=== PATIENT | female | born 1955 | race Caucasian/White ===

== ENCOUNTER 2017-04-05 12:11 | Inpatient (IN) | payer BC ==
[~2017-04-05] VITALS: Ht 157.5 cm; Wt 68.9 kg
[2017-04-05] MEDS ORDERED: ONDANSETRON 4 MG INJ IV STA ×2 (12:16→16:16)
[2017-04-05] MEDS ORDERED: morphine 4 MG/ML VIAL IV STA ×2 (12:16→16:16)
[2017-04-05] MEDS ORDERED: SOD CHLORIDE 0.9% 1,000 ML IV STA ×3 (12:16→16:02)
[2017-04-05] MEDS ORDERED: MECLIZINE 12.5 MG TAB PO ONE (12:30)
[2017-04-05 12:41] LABS: BASOPHILS % 0.3 % (0.0-2.0); EOSINOPHILS # 0.1 10^3/ul (0.0-0.5); EOSINOPHILS % 0.5 % (0.0-7.0); HEMATOCRIT 38.1 % (37.0-47.0); HEMOGLOBIN 13.1 g/dl (12.0-16.0); LYMPHOCYTES # 2.2 10^3/ul (0.8-2.9); LYMPHOCYTES % 13.7 % (15.0-51.0); MEAN CORPUSCULAR HEMOGLOBIN 31.6 pg (29.0-33.0); MEAN CORPUSCULAR HGB CONC 34.4 g/dl (32.0-37.0); MEAN CORPUSCULAR VOLUME 91.8 fl (82.0-101.0); MEAN PLATELET VOLUME 10.3 fl (7.4-10.4); MONOCYTE # 0.6 10^3/ul (0.3-0.9); MONOCYTES % 4.1 % (0.0-11.0); NEUTROPHIL # 12.8 10^3/ul (1.6-7.5); NEUTROPHILS % 80.6 % (39.0-77.0); PLATELET COUNT 292 10^3/UL (140-415); RED BLOOD COUNT 4.15 10^6/ul (4.20-5.40); RED CELL DISTRIBUTION WIDTH 13.2 % (11.5-14.5); WHITE BLOOD COUNT 15.8 10^3/ul (4.8-10.8)
--- NOTE | 2017-04-05 12:47 | RADRPT ---
PROCEDURE: US Abdomen (right upper quadrant). CLINICAL INDICATION: Upper abdominal pain. TECHNIQUE: Multiple real-time longitudinal and transverse images of the right upper quadrant of th e abdomen were acquired utilizing a curved array transducer. Images were reviewed on a high-resoluti on PACS workstation. COMPARISON: None FINDINGS: The liver is normal in size and echotexture without focal mass or intrahepatic biliary dilatation. There is normal hepatopedal flow within the main portal vein. The gallbladder is well displayed wit hout filling defects or wall thickening The common bile duct measures 2.6 mm in maximal dimension. The visualized portions of the pancreas are unremarkable with obscuration of the tail of the pancre as. No free fluid is identified. The right kidney measures 10.5 cm in length. There is normal echogenicity within the right kidney. There is no perinephric fluid collection. No hydronephrosis, mass, or calculus is seen. IMPRESSION: 1. Unremarkable right upper quadrant ultrasound. RPTAT: [facility] Physician Jigar Date Time Electronically viewed and signed by Physician Jigar on 04/05/2017 12:47 CORRINE/
[2017-04-05 12:56] LABS: INR 0.91; PROTIME 12.2 Sec (12.2-14.2)
[2017-04-05 12:57] LABS: PARTIAL THROMBOPLASTIN TIME 30.3 Sec (25.0-35.0)
[2017-04-05 12:58] LABS: ALANINE AMINOTRANSFERASE 51 IU/L (13-69); ALBUMIN 4.5 g/dl (3.3-4.9); ALKALINE PHOSPHATASE 125 IU/L (42-121); ANION GAP 21 (8-16); ASPARTATE AMINO TRANSFERASE 33 IU/L (15-46); BILIRUBIN,INDIRECT 0.2 mg/dl (0-1.1); BILIRUBIN,TOTAL 0.2 mg/dl (0.2-1.3); BLOOD UREA NITROGEN 17 mg/dl (7-20); CALCIUM 9.1 mg/dl (8.4-10.2); CARBON DIOXIDE 23 mmol/L (21-31); CHLORIDE 99 mmol/L (97-110); CREATININE 0.75 mg/dl (0.44-1.00); GLUCOSE 187 mg/dl (70-220); POTASSIUM 3.1 mmol/L (3.5-5.1); SODIUM 140 mmol/L (135-144); TOTAL PROTEIN 7.6 g/dl (6.1-8.1)
--- NOTE | 2017-04-05 12:59 | RADRPT ---
PROCEDURE: XR Chest. CLINICAL INDICATION: chest pain, cva TECHNIQUE: Single frontal view of the chest was obtained COMPARISON: None FINDINGS: The heart and mediastinum are within normal limits. The lungs are clear. There is no pleural effusion or pneumothorax. RPTAT: AA IMPRESSION: No acute disease. .Bart Romero MD, MD Date Time Electronically viewed and signed by .Bart Romero MD, on 04/05/2017 12:59 .S/
[2017-04-05 13:12] LABS: TROPONIN-I < 0.012 ng/ml (0.00-0.12)
--- NOTE | 2017-04-05 13:17 | RADRPT ---
PROCEDURE: CT Brain without. CLINICAL INDICATION: Neurological deficit, possible stroke. TECHNIQUE: A CT of the brain was performed on multidetector high-resolution CT scanner utilizing a xial sections from the skull base through the vertex without contrast. The scan was reviewed in sof t tissue brain and high frequency resolution bone algorithm windows. Images were reviewed on a high -resolution PACS workstation. One or more the following does reduction techniques were utilized: Aut omated exposure control, adjustment of the mA/ or kV according to patient's size, or use of iterativ e reconstruction technique. The exam CTDI = 43.58 mGy and the DLP = 630.2 mGy-cm. COMPARISON: None available. FINDINGS: The ventricles and sulci are mildly prominent indicative of volume loss. There is no intracranial h emorrhage, mass effect or midline shift. No abnormal intra-axial or extra-axial fluid collections a re seen. The ceja/white matter differentiation is preserved. There are mild scattered foci of hypoattenuation in the white matter, which are nonspecific in etiol ogy but likely reflect chronic small vessel ischemic changes. There are mild intracranial vascular calcifications consistent with atherosclerosis. The visualized paranasal sinuses demonstrate mild sc attered mucosal thickening mainly in ethmoid air cells. The mastoid air cells are essentially clear . IMPRESSION: 1. No acute intracranial hemorrhage, transcortical infarction or mass effect. Please note MRI is mo re sensitive for detection of acute ischemia and can be obtained as clinically warranted. 2. Mild intracranial atherosclerosis and chronic small vessel ischemic changes. 3. Mild generalized cerebral volume loss. RPTAT: HH .Alberta Patricia MD, MD Date Time Electronically viewed and signed by .Alberta Patricia MD, MD on 04/05/2017 13:16 .N/
[2017-04-05] MEDS ORDERED: POTASSIUM CHLORIDE (SR) 20 MEQ TAB PO STA (13:24)
[2017-04-05] MEDS ORDERED: NITROGLYCERIN 2% 1 GM OINT PKT TD STA (13:29)
[2017-04-05] MEDS ORDERED: ASPIRIN 81 MG TAB PO STA (13:29)
[2017-04-05] MEDS ORDERED: LIDOCAINE/MYLANTA 40 ML BTL PO ONE (13:30)
[2017-04-05] MEDS ORDERED: METF500T4 PO (13:30)
[2017-04-05] MEDS ORDERED: NITROGLYCERIN (SL) 0.4 MG TAB SL PRN (13:30)
[2017-04-05] MEDS ORDERED: METF500T3 PO (13:44)
[2017-04-05] MEDS ORDERED: CARB200T43 PO (13:49)
--- NOTE | 2017-04-05 14:11 | ERA ---
ER Documentation Chief Complaint Date/Time DATE: 04/05/17 TIME: 14:08 Chief Complaint BIB RA FOR EVAL OF N/V HPI Patient is a 61-year-old female with diabetes and vertigo who presents with epigastric pain as well as vomiting and dizziness. The symptoms started a few days ago. She came from work. She has midepigastric pain which comes and goes. She has had no treatment as of yet. She has never had a stress test or cardiac cath done. Upon review of old medical records this is the patient's first visit to the emergency department. ROS All systems reviewed and are negative except as per history of present illness. Medications Home Meds Reported Medications Carbamazepine* (Carbamazepine* XR) 200 Mg Tab.er.12h, 200 MG PO Q12, #60 TAB.SA 04/05/17 Metformin Hcl* (Metformin Hcl* ER) 500 Mg Tab.sr.24h, 500 MG PO DAILY, #30 TAB 04/05/17 Discontinued Reported Medications Metformin Hcl* (Metformin Hcl*) 500 Mg Tablet, 500 MG PO WITH BREAKFAST, #30 TAB 04/05/17 Allergies Allergies: Coded Allergies: No Known Allergy (Unverified , 04/05/17) PMhx/Soc Medical and Surgical Hx: pt denies Medical Hx History of Surgery: No Anesthesia Reaction: No Hx Neurological Disorder: No Hx Respiratory Disorders: No Hx Cardiac Disorders: No Hx Psychiatric Problems: No Hx Miscellaneous Medical Probl: Yes (DM, VERTIGO) Hx Alcohol Use: No Hx Substance Use: No Hx Tobacco Use: No Smoking Status: Never smoker FmHx Family History: diabetes Physical Exam Vitals Vital Signs Date Time Temp Pulse Resp B/P Pulse Ox O2 Delivery O2 Flow Rate FiO2 04/05/17 12:16 97.7 73 18 122/59 98 Room Air 04/05/17 12:16 Nasal Cannula 1 04/05/17 12:13 97.7 71 18 123/58 97 Physical Exam Const: Moderate distress Head: Atraumatic Eyes: Normal Conjunctiva ENT: Normal External Ears, Nose and Mouth. Neck: Full range of motion..~ No meningismus. Resp: Clear to auscultation bilaterally Cardio: Regular rate and rhythm, no murmurs Abd: Soft, non tender, non distended. Normal bowel sounds Skin: No petechiae or rashes Back: No midline or flank tenderness Ext: No cyanosis, or edema Neur: Awake and alert Psych: Normal Mood and Affect Result Diagram: 04/05/17 1226 04/05/17 1226 Results 24 hrs Laboratory Tests Test 04/05/17 12:26 04/05/17 12:29 White Blood Count 15.810^3/ul Red Blood Count 4.1510^6/ul Hemoglobin 13.1g/dl Hematocrit 38.1% Mean Corpuscular Volume 91.8fl Mean Corpuscular Hemoglobin 31.6pg Mean Corpuscular Hemoglobin Concent 34.4g/dl Red Cell Distribution Width 13.2% Platelet Count 70810^3/UL Mean Platelet Volume 10.3fl Neutrophils % 80.6% Lymphocytes % 13.7% Monocytes % 4.1% Eosinophils % 0.5% Basophils % 0.3% Nucleated Red Blood Cells % 0.0/100WBC Neutrophils # 12.810^3/ul Lymphocytes # 2.210^3/ul Monocytes # 0.610^3/ul Eosinophils # 0.110^3/ul Basophils # 0.010^3/ul Nucleated Red Blood Cells # 0.010^3/ul Prothrombin Time 12.2Sec Prothrombin Time Ratio 1.0 INR International Normalized Ratio 0.91 Activated Partial Thromboplast Time 30.3Sec Sodium Level 140mmol/L Potassium Level 3.1mmol/L Chloride Level 99mmol/L Carbon Dioxide Level 23mmol/L Anion Gap 21 Blood Urea Nitrogen 17mg/dl Creatinine 0.75mg/dl Glucose Level 187mg/dl Hemoglobin A1c 6.9% Calcium Level 9.1mg/dl Total Bilirubin 0.2mg/dl Direct Bilirubin 0.00mg/dl Indirect Bilirubin 0.2mg/dl Aspartate Amino Transf (AST/SGOT) 33IU/L Alanine Aminotransferase (ALT/SGPT) 51IU/L Alkaline Phosphatase 125IU/L Troponin I < 0.012ng/ml Total Protein 7.6g/dl Albumin 4.5g/dl Lipase 81U/L Bedside Glucose 190mg/dL Current Medications Medications (Trade) Dose Ordered Sig/Meghann Route PRN Reason Start Time Stop Time Status Last Admin Dose Admin Sodium Chloride (NS) 1,000 ml @ 1,000 mls/hr Q1H STAT IV 04/05/17 12:16 04/05/17 13:15 DC 04/05/17 12:26 Morphine Sulfate (morphine) 4 mg ONCE STAT IV 04/05/17 12:16 04/05/17 12:18 DC 04/05/17 12:33 Ondansetron HCl (Zofran Inj) 4 mg ONCE STAT IV 04/05/17 12:16 04/05/17 12:18 DC 04/05/17 12:27 Meclizine HCl (Antivert) 25 mg ONCE ONCE PO 04/05/17 12:30 04/05/17 12:31 DC 04/05/17 12:26 Potassium Chloride (Klor-Con 20) 40 meq ONCE STAT PO 04/05/17 13:24 04/05/17 13:26 DC 04/05/17 13:48 Aspirin (Aspirin) 162 mg ONCE STAT PO 04/05/17 13:29 04/05/17 13:30 DC 04/05/17 13:49 Nitroglycerin (Nitroglycerin 2% Oint) 1 inch ONCE STAT TD 04/05/17 13:29 04/05/17 13:30 DC 04/05/17 13:49 Nitroglycerin (Nitroglycerin (Sl Tab) 0.4 Mg) 1 tab Q5M UP TO 3 DOSES PRN SL CHEST PAIN 04/05/17 13:30 Miscellaneous Medication (Gi Cocktail (2)) 40 ml ONCE ONCE PO 04/05/17 13:30 04/05/17 13:31 DC 04/05/17 13:47 Ondansetron HCl (Zofran Inj) 4 mg ER BRIDGE PRN IV NAUSEA AND/OR VOMITING 04/05/17 14:30 04/06/17 14:29 Acetaminophen (Tylenol Tab) 650 mg ER BRIDGE PRN PO MILD PAIN/FEVER 04/05/17 14:30 04/06/17 14:29 Procedures/MDM EKG #1 read by me: Rate/Rhythm: Regular rate and rhythm at a rate of 69 Intervals: Normal Impression: No evidence of ischemia or arrhythmia EKG #2 read by me: Rate/Rhythm: Regular rate and rhythm at a rate of 71 Intervals: Normal Impression: No evidence of ischemia or arrhythmia CT brain negative per radiology. Chest x-ray shows no pneumonia or pneumothorax per radiology. Patient is a 61-year-old female with diabetes who presents with epigastric pain and vomiting. She still does not feel well after treatment with morphine, Zofran, and fluids as well as meclizine. Therefore I am concerned about a possible acute coronary syndrome. At this point I doubt pneumonia, pneumothorax , pulmonary embolism, or aortic dissection. I will treat the patient with aspirin, nitroglycerin, and a GI cocktail. I spoke with Dr. Nelson from the panel team for admission to a telemetry bed. Departure Diagnosis: Primary Impression: Epigastric pain Additional Impression: Nausea and vomiting Qualified Code: R11.2 - Non-intractable vomiting with nausea, unspecified vomiting type Condition: COMPA Montalvo MD Apr 05, 2017 14:11
[2017-04-05] MEDS ORDERED: ONDANSETRON 4 MG INJ IV PRN (14:30)
[2017-04-05] MEDS ORDERED: ACETAMINOPHEN 325 MG TAB PO PRN ×2 (14:30→19:00)
[2017-04-05 14:31] LABS: UR RBC 0 /HPF (0-5)
[2017-04-05 14:38] LABS: BARBITURATES Negative (NEGATIVE); BENZODIAZEPINES Negative (NEGATIVE); CANNABINOIDS Negative (NEGATIVE); COCAINE Negative (NEGATIVE); OPIATES Positive (NEGATIVE)
[2017-04-05 14:47] LABS: UR BACTERIA FEW /HPF (NONE SEEN)
[2017-04-05 15:13] LABS: ADD UMIC NO; UR ASCORBIC ACID 20 mg/dL (NEGATIVE); UR BILIRUBIN (Dip) NEGATIVE (NEGATIVE); UR BLOOD (Dip) NEGATIVE (NEGATIVE); UR CLARITY CLEAR (CLEAR); UR COLOR YELLOW (YELLOW); UR GLUCOSE (Dip) 1+ mg/dL (NEGATIVE); UR KETONES (Dip) 2+ mg/dL (NEGATIVE); UR LEUKOCYTE ESTERASE (Dip) NEGATIVE Leu/ul (NEGATIVE); UR NITRITE (Dip) NEGATIVE (NEGATIVE); UR SPECIFIC GRAVITY (Dip) 1.017 (1.003-1.030); UR TOTAL PROTEIN (Dip) NEGATIVE (NEGATIVE); UR UROBILINOGEN (Dip) NEGATIVE (NEGATIVE)
--- NOTE | 2017-04-05 17:08 | RADRPT ---
PROCEDURE: CTA chest with contrast utilizing the pulmonary embolus protocol. CLINICAL INDICATION: Chest pain. TECHNIQUE: CT angiography of the chest was performed after the uneventful intravenous administration of 99 cc o f Visipaque 320. Coronal and sagittal reformations were performed. 3-D/multiplanar reformations wer e performed by the technologist and at an independent workstation. The total exam CTDI equals 28.17, 11.71 and the total exam DLP equals 432.92 mGy-cm. One or more of the following dose reduction techniques were used: - Automated exposure control. - Adjustment of the mA and/or kV according to patient size. - Use of iterative reconstruction technique. COMPARISON: Chest x-ray dated 04/05/2017. FINDINGS: Pulmonary vasculature: There are no filling defects through the level of the subsegmental pulmonary arteries. The main pulm onary artery is normal in caliber and there is no evidence of right heart strain. Lungs, pleura, airways, and thoracic inlet: There is subsegmental atelectasis versus scarring in both lower lobes. There is no focal consolidat ion, effusion, or pneumothorax. There is interlobular septal thickening of a few small ground-glass nodules and tree in bud opacities in the lateral left upper lobe. The tracheobronchial tree is paten t and normal in course and caliber. There is a small fat containing right Bochdalek hernia. Cardiovascular system, mediastinum, and lymphatics: The heart is normal in size without pericardial thickening or effusion. There are atherosclerotic c hanges of the aorta, which is nonaneurysmal. There is no axillary, hilar, or mediastinal adenopathy. Visualized upper abdomen: The visualized upper abdomen is unremarkable. Musculoskeletal system: There is a mild compression deformity involving the superior endplate of the T12 vertebral body, age indeterminate. There is minimal retropulsion of fracture fragments into the canal. There are no co ncerning osseous lesions. IMPRESSION: 1. No pulmonary emboli through the level of the subsegmental pulmonary arteries. 2. Bronchiolitis in the lateral left upper lobe with surrounding glass nodular opacities, which are likely inflammatory in nature. No focal consolidation. 3. Small fat containing right Bochdalek hernia. 4. Mild compression deformity involving the superior endplate of the T12 vertebral body, age indete rminate. Minimal retropulsion of fracture fragments into the canal. RPTAT: GG .Vinod Love MD, MD Date Time Electronically viewed and signed by .Vinod Love MD, MD on 04/05/2017 17:08 .P/
[2017-04-05 18:27] VITALS: TEMP 97.7
--- NOTE | 2017-04-05 18:59 | HP ---
Date/Time of Note Date/Time of Note DATE: 04/05/17 TIME: 18:59 Assessment/Plan VTE Prophylaxis VTE Prophylaxis Intervention: SCD's Assessment/Plan Assessment/Plan 61 yo F with pmhx ?bipolar, DM2 with 2 days of nausea/vomiting associated with CP and SOB. d/dx includes viral gastro, ACS, mild DKA v other PLAN serial trops TTE possible GI eval in AM if GI symptoms do not improve IVFs accuchecks and SSI DVT prophx cont home carbamazepine HPI/ROS Admit Date/Time Admit Date/Time Hx of Present Illness 61 yo F with pmhx DM, ?bipolar? presents with 2 days of nausea, chest pain, shortness of breath. States it started after drinking some "strong coffee" and a new vegetable she was told to eat for her diabetes. No fevers or chills. No diarrhea. 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 Smoking Status: Never smoker Exam/Review of Systems Vital Signs Vitals Vital Signs Date Time Temp Pulse Resp B/P Pulse Ox O2 Delivery O2 Flow Rate FiO2 04/05/17 18:27 97.7 74 16 104/54 98 Nasal Cannula 2.0 Exam Exam nad MM dry EOMI no mrg lungs clear abd soft no rashes moves exts freely WBCs elevated, Cr nl CT PE protocol without PE UA with ketones and glucose Labs Result Diagram: 04/05/17 1226 04/05/17 1226 Medications Medications Current Medications Carbamazepine (Tegretol Xr) 200 mg Q12 PO ; Start 04/05/17 at 21:00; Status UNV Acetaminophen (Tylenol Tab) 650 mg Q6H PRN PO PAIN LEVEL 1-3 OR FEVER; Start at 19:00; Status UNV Acetaminophen/ Hydrocodone Bitart (Zamora (5/325)) 1 tab Q6H PRN PO MODERATE PAIN LEVEL 4-6; Start 04/05/17 at 19:00; Status UNV Morphine Sulfate (morphine) 2 mg Q4H PRN IV SEVERE PAIN LEVEL 7-10; Start 04/05 at 19:00; Status UNV Enoxaparin Sodium (Lovenox) 40 mg DAILY SC ; Start 04/06/17 at 09:00; Status UNV BLAS BUTLER MD Apr 05, 2017 18:59
[2017-04-05] MEDS ORDERED: NACL 0.9% 3 ML SYG IV SCH (19:00)
[2017-04-05] MEDS ORDERED: morphine 2 MG INJ IV PRN (19:00)
[2017-04-05] MEDS ORDERED: HYDROCODONE/APAP (5/325) TAB PO PRN (19:00)
[2017-04-05 19:38] LABS: CHOL/HDL RATIO 5.8 RATIO
[2017-04-05] MEDS ORDERED: GLUCAGON 1 MG INJ IM PRN (20:00)
[2017-04-05] MEDS ORDERED: GLUCOSE GEL 15 GRAM TUBE PO PRN ×2 (20:00)
[2017-04-05] MEDS ORDERED: DEXTROSE 50% 50 ML SYRINGE IV PRN ×2 (20:00)
[2017-04-05] MEDS ORDERED: GLUCOSE GEL 15 GRAM TUBE BUCCAL PRN (20:00)
[2017-04-05 20:24] VITALS: BP 127/58; RESP 18
[2017-04-05 20:30] VITALS: PULSE 69
[2017-04-05] MEDS: INSULIN ASPART [NOVOLOG] 3 ML PEN SC SCH (21:00)
[2017-04-05] MEDS ORDERED: carBAMAZepine (XR) 200 MG TABSR PO SCH (21:00)
[2017-04-05] MEDS: SOD CHLORIDE 0.9% 1,000 ML IV SCH (21:36)
[2017-04-05] MEDS: carBAMAZepine (XR) 100 MG TABSR PO SCH (21:45)
[2017-04-05 23:04] VITALS: Ht 157.5 cm; Wt 68.9 kg
[2017-04-06] VITALS (10 sets, daily range): BP systolic 100–116; BP diastolic 51–58; PULSE 62–76; RESP 18
[2017-04-06] MEDS ORDERED: ACCU-CHEK XX SCH ×2 (02:00)
[2017-04-06] MEDS: SOD CHLORIDE 0.9% 1,000 ML IV SCH ×2 (05:20→12:35)
[2017-04-06] MEDS: INSULIN ASPART [NOVOLOG] 3 ML PEN SC SCH ×2 (08:00→12:00)
[2017-04-06 08:43] LABS: CALCIUM 7.9 mg/dl (8.4-10.2); CREATININE 0.71 mg/dl (0.44-1.00); POTASSIUM 4.1 mmol/L (3.5-5.1)
[2017-04-06] MEDS: carBAMAZepine (XR) 100 MG TABSR PO SCH (08:59)
[2017-04-06] MEDS ORDERED: ENOXAPARIN 40 MG/0.4 ML SYG SC SCH (09:00)
--- NOTE | 2017-04-06 11:13 | RADRPT ---
Echocardiogram Report Patient Name: ESPERANZA RUIZ Gender: Female Date: 1955 Study Date: 06-Apr-2017 Rail Operator: Frieda Gonzalez [facility] Location: 5552 Ref. Physician: BLAS BUTLER Quality: Good Procedures: Transthoracic echocardiogram with complete 2D, M-Mode, and doppler examination. Indications: Chest Pain. 2D/M Mode Doppler Measurement Value Normal Ranges Measurement Value Normal Ranges LVIDd 2D 4.5 3.5 - 5.6 cm AV Peak Miky 1.5 m/sec LVIDs 2D 2.4 2.1 - 4.1 cm AV Peak PG 9.0 mmHg FS 2D 45.9 % LVOT Peak Miky 1.0 m/sec LVPWd 2D 0.9 0.6 - 1.1 cm LVOT Peak PG 4.0 mmHg IVSd 2D 0.9 0.6 - 1.1 cm MV E Peak Miky 0.9 m/sec IVS/LVPW 2D 1.0 MV A Peak Miky 0.6 m/sec AoR Diam 2D 2.4 2.0 - 3.7 cm MV E/A 1.4 LA/Ao 2D 1 0 - 1 MV Decel Time 180 msec EDV 2D 89.3 cm3 MV E/A 1.4 ESV 2D 14.2 cm3 TR Peak Miky 2.4 m/sec LA Dimen 2D 3.3 2.3 - 4.0 cm TR Peak PG 23.0 mmHg RVSP 31.0 mmHg Findings Left Ventricle: Normal left ventricular systolic function. Normal left ventricular cavity size. Normal left ventricular wall thickness. Ejection fraction is visually estimated at 65 %. Right Ventricle: Normal right ventricular size. Normal right ventricular systolic function. Left Atrium: The left atrium is normal in size. Right Atrium: The right atrium is normal in size. Mitral Valve: Normal appearance and function of the mitral valve with trace physiologic regurgitation. Aortic Valve: Normal appearance of the aortic valve. No significant aortic stenosis or insufficiency. Tricuspid Valve: Normal appearance and function of the tricuspid valve with trace physiologic regurgitation. Estimated peak PA systolic pressure 31 mmHg. Pulmonic Valve: Normal pulmonic valve appearance. Pericardium: Normal pericardium with no significant pericardial effusion. Aorta: Normal aortic root. IVC: Dilated IVC with respiratory collapse consistent with elevated right atrial pressure. Conclusions 1.Normal left ventricular systolic function. Normal left ventricular cavity size. Normal left ventricular wall thickness. Ejection fraction is visually estimated at 65 %. 2.Normal right ventricular size. Normal right ventricular systolic function. 3.The left atrium is normal in size. 4.The right atrium is normal in size. 5.No significant valvular stenosis or regurgitation seen. 6.Normal pericardium with no significant pericardial effusion. Electronically Signed By: Quentin Camejo 06-Apr-2017 11:12:29 -5300 Patient Name: ESPERANZA RUIZ Study Date: 06-Apr-2017 [id number]
--- NOTE | 2017-04-06 13:47 | PDOCDIS ---
Discharge Instructions DIAGNOSIS Discharge Diagnosis nausea, pain, shortness of breath of unclear etiology CONDITION Patient Condition: Good HOME CARE INSTRUCTIONS: Diet Instructions: Reduced Calorie ACTIVITY: Activity Restrictions: No Restrictions FOLLOW UP/APPOINTMENTS Follow-up Plan Return to the emergency room if your symptoms come back. If you have chest pain or shortness of breath, you should dial [phone] follow up with your primary care doctor for management of your diabetes SCHOOL/WORK RELEASE May return to School/Work with: No Restrictions CHIDI MYLES MD Apr 06, 2017 13:47
--- NOTE | 2017-04-06 13:50 | DS ---
Date/Time of Note Date/Time of Note DATE: 04/06/17 TIME: 13:48 Discharge Summary Admission/Discharge Info Admit Date/Time Apr 05, 2017 at 14:03 Discharge Date/Time Discharge Diagnosis nausea, pain, shortness of breath of unclear etiology Patient Condition: Good Hx of Present Illness 61 yo F with pmhx DM, ?bipolar? presents with 2 days of nausea, chest pain, shortness of breath. States it started after drinking some "strong coffee" and a new vegetable she was told to eat for her diabetes. No fevers or chills. No diarrhea. +occ epigastric discomfort Hospital Course the patient underwent CT-A which was negative for acute pathology, no pulmonary embolism. cardiac biomarkers were negative. Her symptoms resolved by HOD 2 and she was discharged to home. the etiology of her symptoms was not clear. This was stressed to the patient. She was advised to return to the ED immediately if she feels unwell or develops any concerning symptoms. Otherwise she was encouraged to follow with her primary care doctor for further medical management and for her diabetes Home Meds Reported Medications Carbamazepine* (Carbamazepine* XR) 200 Mg Tab.er.12h, 200 MG PO Q12, #60 TAB.SA 04/05/17 Metformin Hcl* (Metformin Hcl* ER) 500 Mg Tab.sr.24h, 500 MG PO DAILY, #30 TAB PT HASNT FILLED MED SINCE 08/2504/05/17 Discontinued Reported Medications Metformin Hcl* (Metformin Hcl*) 500 Mg Tablet, 500 MG PO WITH BREAKFAST, #30 TAB 04/05/17 Primary Care Provider Care Physician No Primary Time spent on discharge: > 30 minutes Pending Labs Laboratory Tests Test 04/05/17 14:02 04/05/17 16:31 04/05/17 17:41 04/05/17 21:42 Urine Color YELLOW (YELLOW) Urine Clarity CLEAR (CLEAR) Urine pH 6.0 (5.0-9.0) Urine Specific [place] 1.017 (1.003-1.030) Urine Ketones 2+mg/dL (NEGATIVE) Urine Nitrite NEGATIVEmg/dL (NEGATIVE) Urine Bilirubin NEGATIVEmg/dL (NEGATIVE) Urine Urobilinogen NEGATIVEmg/dL (NEGATIVE) Urine Leukocyte Esterase NEGATIVELeu/ul (NEGATIVE) Urine Microscopic RBC 0/HPF (0-5) Urine Microscopic WBC 1/HPF (0-5) Urine Bacteria FEW/HPF (NONE SEEN) Urine Hemoglobin NEGATIVEmg/dL (NEGATIVE) Urine Glucose 1+mg/dL (NEGATIVE) Urine Total Protein NEGATIVEmg/dl (NEGATIVE) Urine Opiates Screen Positive (NEGATIVE) Urine Barbiturates Negative (NEGATIVE) Urine Amphetamines Screen Negative (NEGATIVE) Urine Benzodiazepines Screen Negative (NEGATIVE) Urine Cocaine Screen Negative (NEGATIVE) Urine Cannabinoids Negative (NEGATIVE) Bedside Glucose 211mg/dL (70-220) 172mg/dL (70-220) Troponin I < 0.012ng/ml (0.00-0.12) Test 04/06/17 06:08 04/06/17 08:49 04/06/17 12:34 Sodium Level 144mmol/L (135-144) Potassium Level 4.1mmol/L (3.5-5.1) Chloride Level 112mmol/L (97-110) Carbon Dioxide Level 21mmol/L (21-31) Anion Gap 15 (8-16) Blood Urea Nitrogen 8mg/dl (7-20) Creatinine 0.71mg/dl (0.44-1.00) Glucose Level 98mg/dl (70-220) Calcium Level 7.9mg/dl (8.4-10.2) Bedside Glucose 120mg/dL (70-220) 129mg/dL (70-220) CHIDI MYLES MD Apr 06, 2017 13:50
== END 2017-04-06 18:03 | disposition home or self-care (01) | DRG 392 ==
LOC: E/R 12:11 → MS4 14:03
PROVIDERS: ADMIT Internal Medicine; ATTEND Internal Medicine
DX: R11.2 Nausea with vomiting, unspecified (principal); E11.9 Type 2 diabetes mellitus without complications; R10.13 Epigastric pain; Z79.4 Long term (current) use of insulin
CPT/HCPCS: 36415; 70450; 71010; 71275; 76705; 80048; 80061; 80076; 80307; 81003; 82962; 83036; 83690; 84484; 85025; 85610; 85730; 93005; 93306; 96361; 96374; 96375; 96376; J1650; J1815; J2270; J2405; J7030